=== PATIENT | male | born 1970 | race Caucasian/White ===

== ENCOUNTER → 2021-10-08 14:01 | Outpatient (CLI) | payer OTHER, SELFPAY ==
--- NOTE | ~2021-10-08 | XR_ITS ---
XR abdomen/kub 1V 10/08/2021 14:32 INDICATION: Irritable bowel syndrome. TECHNIQUE: KUB COMPARISON: 07/02/2008 FINDINGS: Bowel gas pattern is normal. There is no evidence of free air, mass, organomegaly, ascites or obstruction. There are 20 O-rings in the bowel, likely colon. Moderate colonic fecal loading. No abnormal calculi are seen. The bones appear intact. IMPRESSION: 1: Nonobstructive bowel gas pattern with moderate colonic fecal loading.. Reviewed, dictated and finalized at location A. HAMMER OPERATOR
== END ==
PROVIDERS: PCP Internal Medicine
DX: K58.2 Mixed irritable bowel syndrome (principal); K52.9 Noninfective gastroenteritis and colitis, unspecified
CPT/HCPCS: 74018

== ENCOUNTER → 2021-10-10 13:43 | Outpatient (CLI) | payer OTHER, SELFPAY ==
--- NOTE | ~2021-10-10 | XR_ITS ---
XR abdomen/kub 1V 10/10/2021 14:07 Indication: Gastroenteritis. Colitis. Procedure: KUB Comparison: 10/08/2021 Findings: Bowel gas pattern is nonobstructive. No residual rings are identified in the bowel which we re seen on 10/08/2021. Moderate colonic fecal loading. No abnormal renal stones. There is mild lumbar spondylosis with levoscoliosis. There are pelvic phleboliths. Impression: 1: Nonobstructive bowel gas pattern. Reviewed, dictated and finalized at location A. SERVICE AGENT Impression: 1: Nonobstructive bowel gas pattern.
== END ==
PROVIDERS: PCP Internal Medicine
DX: K52.9 Noninfective gastroenteritis and colitis, unspecified (principal); M41.9 Scoliosis, unspecified; M47.816 Spondylosis without myelopathy or radiculopathy, lumbar region
CPT/HCPCS: 74018

== ENCOUNTER → 2021-10-12 14:37 | Outpatient (CLI) | payer OTHER, SELFPAY ==
--- NOTE | ~2021-10-12 | XR_ITS ---
XR abdomen/kub 1V DATE: 10/12/2021 14:50 INDICATION: Irritable bowel syndrome. Alternating constipation and diarrhea. TECHNIQUE: AP projection, 2 views COMPARISON: None FINDINGS: Nonspecific bowel gas pattern, without evidence of obstruction. The psoas shadows are intac t. No visceromegaly or significant abnormal calcification is noted. IMPRESSION: Nonspecific abdomen Reviewed, dictated and finalized at Location A. Reviewed, dictated and finalized at location A. C COMPOSITION TEACHER IMPRESSION: Nonspecific abdomen
== END ==
PROVIDERS: PCP Internal Medicine
DX: K58.2 Mixed irritable bowel syndrome (principal)
CPT/HCPCS: 74018